=== PATIENT | male | born 1960 | race Caucasian/White ===

== ENCOUNTER 2023-03-28 08:00 | Outpatient (CLI) | payer OTHER ==
--- NOTE | 2023-03-28 16:50 | XRAY Report ---
PROCEDURE: Abdomen Acute INDICATIONS: NAUSEA AND VOMITING WITH ABDOMINAL BLOATING TECHNIQUE: 2 views of the abdomen were acquired. COMPARISON: None. FINDINGS: Surgical changes and devices: None. Chest: Lungs are clear. Heart size is normal. No pleural effusions. No pneumoperitoneum. Bowel: No pneumoperitoneum. The bowel gas pattern is normal. Stool load within normal limits. Soft tissues: No masses; visualized solid organ contours appear normal in size. No suspicious abdom inal calcifications. Bones: No suspicious bony abnormalities. IMPRESSION: No acute cardiopulmonary process. Nonobstructive bowel gas pattern. Reviewed by: Debora Zapata MD on 03/28/2023 4:49 PM PST Approved by: Debora Zapata MD on 03/28/2023 4:49 PM PST Station ID: [id number]
== END 2023-03-28 23:59 | disposition home or self-care (01) ==
LOC: DI.S 08:00
PROVIDERS: ATTEND Physician Assistant Medical
DX: R11.2 Nausea with vomiting, unspecified (principal); R14.0 Abdominal distension (gaseous); R19.7 Diarrhea, unspecified

== ENCOUNTER 2023-03-28 17:33 | Emergency (ER) | payer OTHER ==
[2023-03-28 17:55] LABS: BILIRUBIN,URINE NEGATIVE (NEGATIVE); GLUCOSE, URINE (UA) >=1000 mg/dL (NEGATIVE); KETONES,URINE (UA) NEGATIVE (NEGATIVE); LEUKOCYTE ESTERASE, URINE NEGATIVE (NEGATIVE); NITRITE,URINE NEGATIVE (NEGATIVE); OCCULT BLOOD,URINE NEGATIVE (NEGATIVE); PH,URINE 5.5 PH (5.0-7.5); PROTEIN,URINE TRACE mg/dL (NEGATIVE); UROBILINOGEN,URINE 0.2 (NORMAL) E.U./dL (NORMAL)
[2023-03-28 17:56] LABS: CLARITY,URINE CLEAR (CLEAR)
[2023-03-28 18:18] LABS: BASOPHILS % (AUTO) 0.3 %; EOSINOPHILS # (AUTO) 0.1 10^3/uL (0.0-0.7); EOSINOPHILS % (AUTO) 0.8 %; HCT - HEMATOCRIT 60.4 % (42.0-52.0); HGB - HEMOGLOBIN 19.9 g/dL (14.0-18.0); LYMPHOCYTES % (AUTO) 7.5 %; MEAN CORPUSCULAR HEMOGLOBIN 29.7 pg (27.0-31.0); MEAN CORPUSCULAR HGB CONC 32.9 g/dL (32.0-36.0); MEAN CORPUSCULAR VOLUME 90.3 fL (80.0-94.0); MEAN PLATELET VOLUME 10.6 fL (7.4-11.4); MONOCYTES # (AUTO) 0.9 10^3/uL (0.0-1.0); MONOCYTES % (AUTO) 6.7 %; NEUTROPHILS # (AUTO) 11.2 10^3/uL (1.5-6.6); NEUTROPHILS % (AUTO) 84.3 %; PLT - PLATELET COUNT 281 10^3/uL (130-450); RED BLOOD COUNT 6.69 10^6/uL (4.70-6.10); WHITE BLOOD COUNT 13.3 x10^3/uL (4.8-10.8)
[2023-03-28 18:59] LABS: ALBUMIN 4.8 g/dL (3.2-5.5); ALBUMIN/GLOBULIN RATIO 1.4 (1.0-2.2); CALCIUM 9.9 mg/dL (8.5-10.3); CREATININE 1.5 mg/dL (0.6-1.3); POTASSIUM 4.6 mmol/L (3.5-4.5); TOTAL PROTEIN 8.2 g/dL (6.4-8.9)
--- NOTE | 2023-03-28 21:09 | ED Physician Documentation ---
PD HPI ABD PAIN - Stated complaint Stated Complaint: ABD PX/VOMIT - Chief complaint Chief Complaint: Abd Pain - History obtained from History obtained from: Patient - Additional information Additional information: HPI from patient. Patient c/o generalized abdominal pain, predominantly LLQ, since yesterday. He has had diarrhea since yesterday but denies bloody/black stool. Onset was gradual and without specific inciting event. Pain has been constant but waxes and wanes in intensity. There are no exacerbating nor ameliorating factors. Denies fever. He has had nausea since earlier today with few episodes of emesis. He says he also had a generalized rash on torso and extremities earlier today which has subsequently resolved. Patient went to an outpatient clinic today; plain-film abdominal xrays were undertaken and patient says the on-duty practitioner was concerned about the findings and thus told patient to come to ED for further evaluation including CT A/P. Review of Systems Constitutional: reports: Reviewed and negative Cardiac: reports: Reviewed and negative Respiratory: reports: Reviewed and negative GI: reports: Abdominal Pain, Nausea, Vomiting, Diarrhea. denies: Abdominal Swelling, Constipation, Hematemesis, Bloody / black stool PD PAST MEDICAL HISTORY - Past Medical History Past Medical History: Yes Cardiovascular: Hypertension Endocrine/Autoimmune: Type 2 diabetes GI: GERD - Past Surgical History Past Surgical History: No - Allergies Allergies/Adverse Reactions: Allergies Allergy/AdvReac Type Severity Reaction Status Date / Time [id number] Reductase Allergy Anaphylaxis Verified 03/28/23 17:40 Inhibitor - Social History Does the pt smoke?: No Smoking Status: Never smoker Does the pt drink ETOH?: No Does the pt have substance abuse?: No - Immunizations Immunizations are current?: Yes PD ED PE NORMAL - Vitals Vital signs reviewed: Yes - General General: Alert and oriented X 3, No acute distress, Well developed/nourished - Cardiac Cardiac: RRR, No murmur, No gallop, No rub - Respiratory Respiratory: No respiratory distress, Clear bilaterally - Abdomen Abdomen: Normal bowel sounds, Soft, Non tender, Non distended - Derm Derm: Normal color, Warm and dry, No rash Results - Vitals Vitals: Oxygen O2 Source Room air - Labs Labs: Laboratory Tests 03/28/23 03/28/23 03/28/23 17:50 18:05 18:05 WBC 13.3 H RBC 6.69 H Hgb 19.9 H Hct 60.4 H MCV 90.3 MCH 29.7 MCHC 32.9 RDW 15.0 Plt Count 281 MPV 10.6 Neut # (Auto) 11.2 H Lymph # (Auto) 1.0 L [place] # (Auto) 0.9 Eos # (Auto) 0.1 Baso # (Auto) 0.0 Absolute Nucleated RBC 0.00 Nucleated RBC % 0.0 Sodium 138 Potassium 4.6 H Chloride 104 Carbon Dioxide 22 Anion Gap 12.0 BUN 30 H Creatinine 1.5 H Estimated GFR (MDRD) 48 L Glucose 194 H Calcium 9.9 Total Bilirubin 1.0 AST 19 ALT 37 Alkaline Phosphatase 54 Total Protein 8.2 Albumin 4.8 Globulin 3.4 Albumin/Globulin Ratio 1.4 Lipase 10 L Urine Color YELLOW Urine Clarity CLEAR Urine pH 5.5 Ur Specific [place] 1.025 Urine Protein TRACE Urine Glucose (UA) >=1000 H Urine Ketones NEGATIVE Urine Occult Blood NEGATIVE Urine Nitrite NEGATIVE Urine Bilirubin NEGATIVE Urine Urobilinogen 0.2 (NORMAL) Ur Leukocyte Esterase NEGATIVE Ur Microscopic Review NOT INDICATED Urine Culture Comments NOT INDICATED - Rads (name of study) CT A/P with IV contrast Relevant Findings:: Prelim report reviewed, See rad report PD Medical Decision Making - ED course Complexity details: reviewed results, re-evaluated patient, considered differential, d/w patient ED course: Patient is in NAD both initially and on reevaluation prior to d/c. Benign abdominal exam. Mild leukocytosis on CBC (WBC 13.3). moderately elevated h/h (hgb 19.9, hct 60.4). Minimal hyperkalemia (4.6), mildly elevated bun, creatinine (30, 1.5 respectively).UA negative except glucosuria (serum glucose is 194). Patient shows me previous blood tests on his My Chart: on 11/24/22, hgb was 17.[address] A/P without findings to clearly explain symptoms. Radiologist's interpretation includes "questionable mild nonspecific descending and sigmoid colon wall thickening" possibly c/w colitis. Given benign abdominal exam and, at most, questionable mild colitis on CT without other concerning findings from emergent standpoint, patient is safe and appropriate for d/c at this time. Further testing can be performed outpatient if indicated, or else in ED or inpatient if symptoms worsen (return precautions were reviewed with patient prior to d/c). I do not feel that the exam and test findings warrant specific treatment (such as antibiotic(s)). Departure - Departure Disposition: 01 Home, Self Care Clinical Impression: Colitis Condition: Good Instructions: ED Abdominal Pain Unkn Cause Male Follow-Up: NIKO FINNEY MD [Primary Care Provider] - Comments: There are some abnormalities on tonight's blood tests. Your white blood cell count was mildly elevated; this is a non-specific finding and is not elevated to an extent that in/of itself would be cause for concern. Similarly, your red blood cell levels (hemoglobin and hematocrit) are rather high. This is an unusual finding. The blood work results you showed me from November indicate that you had high hemoglobin hematocrit at that time, but they are higher today. You should mention the elevated red cell level to your primary care provider when you next see them. Your hemoglobin was 19.9, hematocrit 60.4. Your potassium was minimally elevated: Your potassium level was 4.6, with the high-normal range being 4.5. You had an elevated set of kidney test, with a BUN of 30 and a creatinine of 1.5. These results are comparable to the results you had this past November. The CT scan does not have a clear cause of your symptoms, although the radiologist does note possible/questionable mild thickening of the wall of your colon on the left side of your abdomen (the descending and sigmoid colon). This could indicate an inflammatory process. IInflammation of the colon is called colitis, although there are several different causes of colitis. The CT scan specifically does not show any evidence of diverticulitis as the cause. Viruses can cause colitis, as can bacteria. There are also some inflammatory causes such as Crohn's disease or ulcerative colitis. Bacterial colitis is unlikely in your case (tends to cause fevers, blood in the stool, and severe abdominal cramping/pains). Ulcerative colitis and crohn's disease are also very unlikely. Follow-up with your primary care provider regarding the symptoms, the CT findings, as well as some of the abnormalities on the blood tests as noted, above. Incidental findings on your CT scan included hepatic steatosis ("fatty liver"), a small nodule within the liver (radiologist suspects this is a hemangioma, which is a benign tangle of blood vessels), and calcifications within your pancreas (it is not clear what is causing this finding, but it is an incidental finding and can be followed up with your primary care provider). Forms: PCP List Discharge Date/Time: 03/29/23 00:13
[2023-03-28] MEDS: SODIUM CHLORIDE 0.9% 1,000 ML IV STA (21:19)
[2023-03-28] MEDS ORDERED: iohexoL-300 100 ML VIAL ONE (21:42)
[2023-03-28] MEDS: iohexoL-300 100 ML VIAL IVP ONE (21:54)
--- NOTE | 2023-03-28 23:22 | CT Report ---
PROCEDURE: Abdomen/Pelvis W INDICATIONS: LLQ pain/tenderness CONTRAST: 100mL Omni 300 TECHNIQUE: After the administration of intravenous contrast, a CT scan of the abdomen and pelvis was performed. Images were recorded and evaluated at appropriate window settings. Reformats: coronal and sagittal. F or radiation dose reduction, the following was used: automated exposure control, adjustment of mA and /or kV according to patient size. COMPARISON: None. FINDINGS: Image quality: Diagnostic. Lower chest: Unremarkable. Liver: Indistinct small segment 8 hypodensity. Mild diffuse hepatic steatosis. There is an exophytic nodule arising inferiorly from segment 4 just to the left of the gallbladder, most likely hemangioma. Gallbladder and biliary tree: The gallbladder is decompressed. No wall thickening or calcifications. No biliary dilatation. Spleen: No splenomegaly. Pancreas: No pancreatic ductal dilatation. There are coarse calcifications in the glandular pancreas. Adrenals: No adrenal nodule. Kidneys and ureters: Symmetric enhancement. No hydronephrosis or nephrolithiasis. No solid mass or cy st requiring follow-up. Stomach, bowel and peritoneum: Stomach and small bowel are normal. There may be mild distal descendin g and sigmoid colon wall thickening. No significant pericolonic inflammation. No diverticula seen. No free fluid, fluid collections, or extraluminal gas. Lymph nodes: No central or retroperitoneal adenopathy. Vessels: No infrarenal aortic aneurysm. PELVIS Reproductive organs: Mild prostatomegaly. Bladder: No abnormal wall thickening, accounting for underdistention. Pelvic lymph nodes: No pelvic adenopathy by size criteria. Bones: No aggressive osseous abnormality. Other: No significant ventral or inguinal hernia. IMPRESSION: Questionable, mild nonspecific descending and sigmoid colon wall thickening suggesting colitis, possi óscar infectious, inflammatory. No diverticula seen. Mild hepatic steatosis with incidental hypodensities, most likely hemangioma. Calcification seen in the pancreas suggest history of remote pancreatitis. Reviewed by: Galina Dhillon MD on 03/28/2023 11:21 PM PST Approved by: Galina Dhillon MD on 03/28/2023 11:21 PM PST Station ID: [id number]
[2023-03-29 00:19] VITALS: BP 131/86; O2SAT 96
== END 2023-03-29 00:13 | disposition home or self-care (01) ==
LOC: ED 17:33
DX: K52.9 Noninfective gastroenteritis and colitis, unspecified (principal); R11.2 Nausea with vomiting, unspecified; R14.0 Abdominal distension (gaseous); I10 Essential (primary) hypertension; E11.9 Type 2 diabetes mellitus without complications
CPT/HCPCS: 36415; 74022; 74177; 80053; 81003; 83690; 85025; 99283; 99284; Q9967; 81001; 87086